=== PATIENT | male | born 1985 | race Hispanic/Latino ===

== ENCOUNTER 2017-11-30 21:55 | Emergency (ER) | payer SELFPAY ==
[2017-11-30] MEDS ORDERED: LIDOCAINE HCL-MPF 1% 2ML VIAL ONE (22:27)
[2017-11-30] MEDS ORDERED: CEFTRIAXONE SODIUM 1 GM ONE (22:28)
[2017-11-30] MEDS ORDERED: KETOROLAC TROMETHAMINE 60 MG/2 ML VIAL ONE (22:28)
== END 2017-11-30 23:19 | disposition home or self-care (01) ==
LOC: EDH 21:55
DX: K02.9 Dental caries, unspecified (principal); Z87.891 Personal history of nicotine dependence
CPT/HCPCS: 96372 ×2; 99284; J0696; J1885; J3490

== ENCOUNTER 2018-11-02 17:36 | Emergency (ER) | payer OTHER | END 2018-11-02 18:41 | disposition home or self-care (01) | LOC: EDH 17:36 | DX: J02.9 Acute pharyngitis, unspecified (principal); L03.314 Cellulitis of groin ==

== ENCOUNTER 2018-11-14 20:02 | Emergency (ER) | payer OTHER | END 2018-11-14 20:49 | disposition home or self-care (01) | LOC: EDH 20:02 | DX: H10.022 Other mucopurulent conjunctivitis, left eye (principal); J03.90 Acute tonsillitis, unspecified; R05 Cough ==

== ENCOUNTER 2019-01-06 14:01 | Emergency (ER) | payer SELFPAY | END 2019-01-06 15:09 | disposition home or self-care (01) | LOC: EDH 14:01 | DX: L03.031 Cellulitis of right toe (principal) ==

== ENCOUNTER 2019-06-26 22:56 | Emergency (ER) | payer OTHER | END 2019-06-27 00:13 | disposition home or self-care (01) | LOC: EDH 22:56 | DX: S40.861A Insect bite (nonvenomous) of right upper arm, initial encounter (principal); J31.2 Chronic pharyngitis; J30.9 Allergic rhinitis, unspecified; K12.0 Recurrent oral aphthae; Z98.890 Other specified postprocedural states; W57.XXXA Bitten or stung by nonvenomous insect and other nonvenomous arthropods, initial encounter; Y93.89 Activity, other specified; Y92.89 Other specified places as the place of occurrence of the external cause; Y99.8 Other external cause status ==

== ENCOUNTER 2019-12-09 15:13 | Emergency (ER) | payer OTHER ==
[2019-12-09] MEDS ORDERED: ONDANSETRON ODT 4 MG TAB ONE (16:42)
[2019-12-09 17:24] LABS: RAPID GROUP A STREP NEGATIVE (NEGATIVE)
== END 2019-12-09 17:51 | disposition home or self-care (01) ==
LOC: EDH 15:13
DX: J11.1 Influenza due to unidentified influenza virus with other respiratory manifestations (principal)
CPT/HCPCS: 87804; 87880

== ENCOUNTER 2020-04-15 05:45 | Emergency (ER) | payer SELFPAY | END 2020-04-15 07:36 | disposition home or self-care (01) | LOC: EDH 05:45 | DX: S60.222A Contusion of left hand, initial encounter (principal); S60.221A Contusion of right hand, initial encounter; S00.83XA Contusion of other part of head, initial encounter; X58.XXXA Exposure to other specified factors, initial encounter; Y93.89 Activity, other specified; Y92.098 Other place in other non-institutional residence as the place of occurrence of the external cause; Y99.8 Other external cause status; F41.9 Anxiety disorder, unspecified | CPT/HCPCS: 99281 ==

== ENCOUNTER 2020-04-20 17:20 | Emergency (ER) | payer SELFPAY ==
[2020-04-20] MEDS ORDERED: KETOROLAC TROMETHAMINE 30MG/ML ONE (17:47)
[2020-04-20] MEDS ORDERED: CLINDAMYCIN 300 MG/D5W 50 ML 50 ML IV ONE (18:38)
== END 2020-04-20 19:21 | disposition home or self-care (01) ==
LOC: EDH 17:20
DX: J01.00 Acute maxillary sinusitis, unspecified (principal); K04.7 Periapical abscess without sinus; L03.211 Cellulitis of face; F41.9 Anxiety disorder, unspecified; F32.9 Major depressive disorder, single episode, unspecified; Z72.0 Tobacco use
CPT/HCPCS: 36415; 70486; 80053; 85025; 87880; 96365; 96375; 99284; J1885; J3490